=== PATIENT | female | born 1990 | race Asian ===

== ENCOUNTER 2019-11-14 22:49 | Emergency (ER) | payer BC ==
[~2019-11-14] VITALS: Ht 157.5 cm; Wt 47.6 kg
[2019-11-14 22:54] VITALS: Ht 157.5 cm; Wt 47.6 kg
[2019-11-15 01:58] VITALS: BP 138/78
== END 2019-11-15 01:57 | disposition home or self-care (01) ==
LOC: ED 22:49
DX: M79.674 Pain in right toe(s) (principal); W18.2XXA Fall in (into) shower or empty bathtub, initial encounter; Y93.E1 Activity, personal bathing and showering; Y92.091 Bathroom in other non-institutional residence as the place of occurrence of the external cause; Y99.8 Other external cause status

== ENCOUNTER 2020-03-28 10:29 | Emergency (ER) | payer BC ==
[~2020-03-28] VITALS: Ht 157.5 cm; Wt 47.6 kg
[2020-03-28 11:03] VITALS: Ht 157.5 cm; Wt 47.6 kg
[2020-03-28 12:32] LABS: BASOPHIL % 0.9 % (0-2); PLATELET COUNT 256 x10^3mcL (130-400)
[2020-03-28 14:55] VITALS: BP 101/72
== END 2020-03-28 14:55 | disposition home or self-care (01) ==
LOC: ED 10:29
PROVIDERS: Emergency Medicine
DX: O26.891 Other specified pregnancy related conditions, first trimester (principal); R10.31 Right lower quadrant pain